=== PATIENT | female | born 1935 | race Caucasian/White ===

== ENCOUNTER 2018-12-14 06:43 | Emergency (ER) | payer MEDICARE, OTHER ==
[2018-12-14 07:23] VITALS: BP 157/59
--- NOTE | 2018-12-14 07:38 | EDM.PDOC ---
ED HPI GENERAL MEDICAL PROBLEM - General Chief Complaint: Lower Extremity Injury/Pain Stated Complaint: POSSIBLE BLOOD CLOT Time Seen by Provider: 12/14/18 07:25 Source of Information: Reports: Patient, RN History Limitations: Reports: No Limitations - History of Present Illness INITIAL COMMENTS - FREE TEXT/NARRATIVE: 83 yo female was sent to the ER after she presented for her scheduled colonoscopy today. She had been seen in the clinic recently for superficial thrombophlebitis and was treating with elevation and heat with plans to start aspirin after her colonoscopy today. The problem had worsened so she was sent to the ER to be re-evaluated. No new SOB or pleuritic chest pain. 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 Has this in both legs R worse than L. 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 (see below) (See HPI) Right Lower Leg Pain Score (Numeric/FACES): 6 - Related Data Allergies Allergy/AdvReac Type Severity Reaction Status Date / Time Penicillins Allergy Rash Verified 12/14/18 07:11 Tetracyclines Allergy Nausea and Verified 12/14/18 07:11 Vomiting Home Meds: Home Meds NK [No Known Home Meds] 12/14/18 [History] Past Medical History HEENT History: Reports: Hard of Hearing, Impaired Vision Gastrointestinal History: Reports: Other (See Below) Other Gastrointestinal History: large colon mass 12/08/2018 Genitourinary History: Reports: Renal Calculus 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: Musculoskeletal History: Reports: Arthritis Hematologic History: Reports: Anemia Oncologic (Cancer) History: Reports: Colon - Infectious Disease History Infectious Disease History: Reports: Chicken Pox, Measles, Mumps - Past Surgical History GI Surgical History: Reports: Colon, Other (See Below) Other GI Surgeries/Procedures: colon CA 2008 Social & Family History - Tobacco Use Smoking Status *Q: Never Smoker Second Hand Smoke Exposure: No - Caffeine Use Caffeine Use: Reports: Coffee, Tea - Recreational Drug Use Recreational Drug Use: No Review of Systems - Review of Systems Review Of Systems: See Below Constitutional: Reports: No Symptoms Eyes: Reports: No Symptoms Ears: Reports: No Symptoms Nose: Reports: No Symptoms Mouth/Throat: Reports: No Symptoms Respiratory: Reports: No Symptoms Cardiovascular: Reports: Other (phlebitis of both legs R > L) GI/Abdominal: Reports: Other (abdominal mass) Genitourinary: Reports: No Symptoms Musculoskeletal: Reports: No Symptoms Skin: Reports: No Symptoms Neurological: Reports: No Symptoms Psychiatric: Reports: No Symptoms ED EXAM, GENERAL - Physical Exam Exam: See Below Exam Limited By: No Limitations General Appearance: Alert, WD/WN, No Apparent Distress Eye Exam: Bilateral Eye: Normal Inspection Ears: Normal External Exam, Normal Canal, Hearing Loss Ear Exam: Bilateral Ear: Auricle Normal, Canal Normal Nose: Normal Inspection, No Blood Throat/Mouth: Normal Inspection, Normal Lips, Normal Oropharynx, Normal Voice, No Airway Compromise Head: Atraumatic, Normocephalic Neck: Normal Inspection Respiratory/Chest: No Respiratory Distress, Lungs Clear, Normal Breath Sounds, No Accessory Muscle Use Cardiovascular: Regular Rate, Rhythm, No Edema GI/Abdominal: Normal Bowel Sounds, Soft, No Distention, Mass (R lower abdomen, not new, is being worked up.). No: No Mass Back Exam: Normal Inspection Extremities: Other (R leg superficial phlebitis from calf to groin, L leg limited to calf area. ) Neurological: Alert, Oriented, CN II-XII Intact, Normal Cognition, No Motor/ Sensory Deficits Psychiatric: Normal Affect, Normal Mood Skin Exam: Warm, Dry, Intact, Normal Color, No Rash Course - Vital Signs Last Recorded V/S: Last Vital Signs Temp 36.6 C 12/14/18 07:22 Pulse 100 12/14/18 07:22 Resp 16 12/14/18 07:22 BP 157/59 H 12/14/18 07:22 Pulse Ox 99 12/14/18 07:22 Departure - Departure Time of Disposition: 07:42 Disposition: Home, Self-Care 01 Condition: Fair Clinical Impression: Phlebitis and thrombophlebitis of superficial vessels of lower extremities, bilateral, Colonic mass Clinical Impression: (Ruled Out): Anemia - Discharge Information *PRESCRIPTION DRUG MONITORING PROGRAM REVIEWED*: No *COPY OF PRESCRIPTION DRUG MONITORING REPORT IN PATIENT RUBENS: No Referrals: Zacarias Angel NP [Primary Care Provider] - Additional Instructions: Continue present treatments. Start the aspirin when surgery tells you it is safe to do so. F/U with your primary if not improving.
== END 2018-12-14 07:56 | disposition home or self-care (01) ==
LOC: JP.ED 06:43
DX: I80.03 Phlebitis and thrombophlebitis of superficial vessels of lower extremities, bilateral (principal); K63.89 Other specified diseases of intestine; Z88.1 Allergy status to other antibiotic agents
CPT/HCPCS: 99283

== ENCOUNTER 2018-12-14 07:57 | Day surgery (SDC) | payer MEDICARE, OTHER ==
[~2018-12-14 07:57] MED LIST: Bupivacaine 0.5% 50 ML MDV ONE; Lactated Ringers 1,000 ML IV SCH; Lidocaine 1% with EPINEPHrine 1:100,000 50 ML MDV ONE; Propofol 200 MG/20 ML SDV ONE; fentaNYL 100 MCG/2 ML SDV ONE
[2018-12-14 10:12] VITALS: BP 123/58
--- NOTE | 2018-12-15 08:33 | OR ---
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 Diverticulosis. PROCEDURE: Colonoscopy to the cecum with biopsy of right colon mass. SURGEON: Oliver Cortez MD ANESTHESIA: IV anesthesia with monitored anesthesia care. INDICATION: This 83-year-old white female has a mass in her right abdominal wall. CAT scan shows that the mass is continuous with a right colon mass. She has a history of rectal cancer, treated with a low-anterior resection 10 years ago. She is here for a colonoscopy with plan to biopsy the right colon mass. If we cannot do this, we will do an ultrasound- guided biopsy of the mass in her right abdominal wall. She is now draining purulent material from her right abdominal wall consistent with an enterocutaneous fistula. I counseled her for the procedures, including risks and alternatives, and she gave her informed consent to proceed. DESCRIPTION OF PROCEDURE: The patient was placed in the left lateral decubitus position. IV anesthesia was administered by the Anesthesia Service. Time-out was held. A rectal exam was performed, which was unremarkable. The flexible video Olympus colonoscope was introduced through her anus, up her rectum and out through the anastomosis, all the way out to the right colon mass. We saw multiple diverticula en route to the right colon mass. We biopsied the right colon mass. The scope was then passed above that all the way into the cecum. The scope was then slowly withdrawn, examining the mucosa throughout. No additional mucosal abnormalities were noted. The scope would not retroflex in the rectal remnant. It was then removed. She tolerated the procedure well. We did not biopsy the right abdominal wall mass, as we were able to reach the mass with the colonoscope. Oliver Cortez MD /[id number] MTDD
== END 2018-12-14 10:55 | disposition home or self-care (01) ==
LOC: JP.SDS 07:57
PROVIDERS: ATTEND Surgery
DX: C18.2 Malignant neoplasm of ascending colon (principal); K57.30 Diverticulosis of large intestine without perforation or abscess without bleeding; K63.2 Fistula of intestine; Z88.0 Allergy status to penicillin; Z88.1 Allergy status to other antibiotic agents; Z90.49 Acquired absence of other specified parts of digestive tract; Z85.048 Personal history of other malignant neoplasm of rectum, rectosigmoid junction, and anus; I80.03 Phlebitis and thrombophlebitis of superficial vessels of lower extremities, bilateral; K63.89 Other specified diseases of intestine
CPT/HCPCS: 45380; 88305; 88341; 88342; 99283; J2704; J3010; J7120; J3490